=== PATIENT | male | born 1965 | race Caucasian/White ===

== ENCOUNTER 2017-02-05 03:28 | Emergency (ER) | payer MEDICAID ==
[~2017-02-05] VITALS: Ht 175.3 cm; Wt 97.0 kg
[~2017-02-05 03:28] MED LIST: AMLO10TA4 PO; CLON0.3T TOP; LEVVL SQ; LOSA100T14 PO
[2017-02-05 04:25] VITALS: BP 113/67
[2017-02-05] MEDS ORDERED: IBUPROFEN 800MG TABLET PO ONE (04:30)
== END 2017-02-05 04:40 | disposition home or self-care (01) ==
LOC: ER 03:49
DX: T88.1XXA Other complications following immunization, not elsewhere classified, initial encounter (principal); I10 Essential (primary) hypertension; E11.9 Type 2 diabetes mellitus without complications; Z88.8 Allergy status to other drugs, medicaments and biological substances; Z79.899 Other long term (current) drug therapy; Z79.4 Long term (current) use of insulin; Z87.891 Personal history of nicotine dependence; F12.10 Cannabis abuse, uncomplicated; Y93.89 Activity, other specified; Y99.9 Unspecified external cause status; Y92.89 Other specified places as the place of occurrence of the external cause
CPT/HCPCS: 99283

== ENCOUNTER 2017-05-01 09:44 | Emergency (ER) | payer MEDICAID ==
[~2017-05-01] VITALS: Ht 175.3 cm; Wt 100.0 kg
[2017-05-01] MEDS ORDERED: IBUPROFEN 800MG TABLET PO ONE (12:15)
[2017-05-01 13:12] VITALS: BP 146/91
== END 2017-05-01 14:23 | disposition home or self-care (01) ==
LOC: ER 09:45
DX: M54.5 Low back pain (principal); E11.9 Type 2 diabetes mellitus without complications; I10 Essential (primary) hypertension; F12.10 Cannabis abuse, uncomplicated; F17.200 Nicotine dependence, unspecified, uncomplicated; Z88.8 Allergy status to other drugs, medicaments and biological substances; Z79.4 Long term (current) use of insulin
CPT/HCPCS: 72100; 99284

== ENCOUNTER 2017-05-25 12:33 | Emergency (ER) | payer MEDICAID ==
[~2017-05-25] VITALS: Ht 175.3 cm; Wt 100.0 kg
[2017-05-25] MEDS ORDERED: KETOROLAC 30MG/ML VIAL IM ONE (14:45)
[2017-05-25 17:05] VITALS: BP 162/96
== END 2017-05-25 17:50 | disposition home or self-care (01) ==
LOC: ER 15:44
DX: M79.661 Pain in right lower leg (principal); M79.651 Pain in right thigh; E11.9 Type 2 diabetes mellitus without complications; I10 Essential (primary) hypertension; F12.90 Cannabis use, unspecified, uncomplicated; Z91.09 Other allergy status, other than to drugs and biological substances; Z79.899 Other long term (current) drug therapy; Z79.4 Long term (current) use of insulin
CPT/HCPCS: 76881; 96372; 99284; J1885

== ENCOUNTER 2019-03-16 10:13 | Emergency (ER) | payer MEDICAID ==
[~2019-03-16] VITALS: Ht 175.3 cm; Wt 97.0 kg
[2019-03-16] MEDS ORDERED: SODIUM CHLORIDE 0.9% 1,000 ML IV ONE (10:41)
[2019-03-16] MEDS ORDERED: MAGNESIUM CITRATE 300ML SOLUTION PO ONE ×2 (10:45→13:15)
[2019-03-16] MEDS ORDERED: MINERAL OIL 30ML BOTTLE PO ONE (10:45)
[2019-03-16 10:55] LABS: EOSINOPHILS % 3.7 % (0.0-5.0); HEMATOCRIT. 46.3 % (42.0-52.0); HEMOGLOBIN. 16.1 g/dL (14.0-18.0); MEAN CORPUSCULAR HEMOGLOBIN 32.7 pg (28.0-32.0); MEAN CORPUSCULAR VOLUME 94.1 fL (80.0-94.0); MEAN PLATELET VOLUME 8.4 fl (7.4-10.4); MONOCYTES % 6.3 % (2.0-8.0); PLATELET 195 x1000/uL (130-400); RED BLOOD CELL COUNT 4.92 mill/uL (4.7-6.1); RED CELL DISTRIBUTION WIDTH 13.3 % (11.6-14.6)
[2019-03-16 11:00] LABS: CHLORIDE 108 mEq/L (98-107)
[2019-03-16 13:35] VITALS: BP 149/97
== END 2019-03-16 14:07 | disposition home or self-care (01) ==
LOC: ER 10:13
DX: K59.00 Constipation, unspecified (principal); R10.9 Unspecified abdominal pain; E11.9 Type 2 diabetes mellitus without complications; I10 Essential (primary) hypertension; F12.10 Cannabis abuse, uncomplicated; Z87.891 Personal history of nicotine dependence; Z91.048 Other nonmedicinal substance allergy status; Z79.899 Other long term (current) drug therapy; Z79.4 Long term (current) use of insulin
CPT/HCPCS: 36415; 74018; 80053; 85025; 99284; J7030

== ENCOUNTER 2019-04-27 09:15 | Emergency (ER) | payer MEDICAID ==
[~2019-04-27] VITALS: Ht 175.3 cm; Wt 89.0 kg
[~2019-04-27 09:15] MED LIST changes: -LOSA100T14 PO; +LOSA100T32 PO
[2019-04-27 09:21] VITALS: BP 177/101
== END 2019-04-27 11:31 | disposition home or self-care (01) ==
LOC: ER 09:15
DX: B37.49 Other urogenital candidiasis (principal); B37.89 Other sites of candidiasis; I10 Essential (primary) hypertension; E11.9 Type 2 diabetes mellitus without complications; F17.210 Nicotine dependence, cigarettes, uncomplicated; F12.90 Cannabis use, unspecified, uncomplicated
CPT/HCPCS: 99283

== ENCOUNTER 2019-06-29 15:36 | Emergency (ER) | payer MEDICAID ==
[~2019-06-29] VITALS: Ht 175.3 cm; Wt 96.0 kg
[2019-06-29 19:41] VITALS: BP 145/80
== END 2019-06-29 19:35 | disposition home or self-care (01) ==
LOC: ER 17:25
DX: B35.6 Tinea cruris (principal); E11.9 Type 2 diabetes mellitus without complications; I10 Essential (primary) hypertension; F12.90 Cannabis use, unspecified, uncomplicated
CPT/HCPCS: 82962; 99283

== ENCOUNTER 2019-12-15 11:07 | Emergency (ER) | payer MEDICAID ==
[~2019-12-15] VITALS: Ht 175.3 cm; Wt 96.0 kg
[2019-12-15] MEDS ORDERED: IBUPROFEN 600MG TABLET PO ONE (12:00)
[2019-12-15 13:02] LABS: CHLORIDE 108 mEq/L (98-107)
[2019-12-15] MEDS ORDERED: CLONIDINE 0.1MG TABLET PO ONE ×2 (13:15→15:00)
[2019-12-15 14:48] VITALS: BP 189/118
== END 2019-12-15 16:00 | disposition home or self-care (01) ==
LOC: ER 11:07
DX: B35.6 Tinea cruris (principal); I16.0 Hypertensive urgency; E11.65 Type 2 diabetes mellitus with hyperglycemia; F12.90 Cannabis use, unspecified, uncomplicated; Z79.4 Long term (current) use of insulin; Z79.899 Other long term (current) drug therapy
CPT/HCPCS: 36415; 80048; 99284

== ENCOUNTER 2023-03-05 19:45 | Emergency (ER) | payer MEDICAID, OTHER ==
[~2023-03-05] VITALS: Ht 175.3 cm; Wt 96.0 kg
[2023-03-05] MEDS ORDERED: ASPIRIN 81MG TABLET PO ONE (20:00)
[2023-03-05 20:30] LABS: BASOPHILS % 0.4 % (0.0-2.0); EOSINOPHILS % 9.4 % (0.0-5.0); HEMATOCRIT. 47.8 % (42.0-52.0); HEMOGLOBIN. 16.8 g/dL (14.0-18.0); LYMPHOCYTES % 26.4 % (20.0-50.0); MEAN CORPUSCULAR VOLUME 96.9 fL (80.0-94.0); MEAN PLATELET VOLUME 8.3 fl (7.4-10.4); MONOCYTES % 7.7 % (2.0-8.0); NEUTROPHILS % 56.1 % (40.0-76.0); PLATELET 217 x1000/uL (130-400); RED BLOOD CELL COUNT 4.94 mill/uL (4.7-6.1); RED CELL DISTRIBUTION WIDTH 13.6 % (11.6-14.6)
[2023-03-05 20:38] LABS: CHLORIDE 109 mEq/L (98-107)
[2023-03-05 20:40] LABS: PARTIAL THROMBOPLASTIN TIME 29.1 sec (23.4-31.0); PROTHROMBIN TIME 11.1 sec (9.6-11.0)
[2023-03-05 22:15] LABS: CLARITY URINE CLEAR (CLEAR); COLOR URINE YELLOW (YELLOW); KETONES URINE TRACE (NEGATIVE); LEUKOCYTE ESTERASE URINE NEGATIVE (NEGATIVE); NITRITE URINE NEGATIVE (NEGATIVE); OCCULT BLOOD URINE 2+ (NEGATIVE); PH URINE 5.5 (4.5-8.0); PROTEIN URINE 2+ (NEGATIVE); SPECIFIC GRAVITY URINE 1.024 (1.005-1.030)
[2023-03-05] MEDS ORDERED: OMEP40CA20 PO (23:55)
[2023-03-06 00:09] VITALS: BP 158/83
== END 2023-03-06 00:10 | disposition home or self-care (01) ==
LOC: ER 19:45
DX: R07.89 Other chest pain (principal); R31.9 Hematuria, unspecified; E11.9 Type 2 diabetes mellitus without complications; I10 Essential (primary) hypertension; F17.200 Nicotine dependence, unspecified, uncomplicated
CPT/HCPCS: 36415; 71045; 80053; 81003; 84484; 85025; 85610; 85730; 93005; 99285; Z7610

== ENCOUNTER 2025-10-03 15:10 | Emergency (ER) | payer MEDICAID ==
[~2025-10-03] VITALS: Ht 175.3 cm; Wt 95.0 kg
[~2025-10-03 15:10] MED LIST changes: +AMLO-905 PO; -AMLO10TA4 PO; -LOSA100T32 PO; +LOSA100T33 PO; +OMEP40CA20 PO
[2025-10-03 15:13] VITALS: O2SAT 100
[2025-10-03 15:30] VITALS: TEMP 36.7; O2SAT 99
[2025-10-03 16:05] VITALS: BP 173/102; PULSE 101; RESP 14
[2025-10-03] MEDS: KETOROLAC 15MG/ML VIAL IM ONE (16:05)
[2025-10-03] MEDS ORDERED: IBUP-1455 MT (16:06)
== END 2025-10-03 16:40 | disposition home or self-care (01) ==
LOC: ER 15:10
DX: S39.012A Strain of muscle, fascia and tendon of lower back, initial encounter (principal); E11.9 Type 2 diabetes mellitus without complications; I10 Essential (primary) hypertension; Z79.1 Long term (current) use of non-steroidal anti-inflammatories (NSAID); Z79.899 Other long term (current) drug therapy; X58.XXXA Exposure to other specified factors, initial encounter; Y93.89 Activity, other specified; Y92.89 Other specified places as the place of occurrence of the external cause; Y99.8 Other external cause status
CPT/HCPCS: 99283; 96372; J1885